=== PATIENT | male | born 2000 | race Caucasian/White ===

== ENCOUNTER 2024-03-01 22:42 | Inpatient (IN) | payer OTHER, SELFPAY ==
[2024-03-01 19:32] VITALS: BMI 19.7
[2024-03-01 19:38] VITALS: BP 142/93
[2024-03-01 20:03] LABS: % Basophils 0.4 % (0-2); % Eosinophils 9.7 % (0-6); % Immature Granulocytes 0.2 % (0-0.5); % Monocytes 5.6 % (1.7-9.3); % Neutrophils 60.1 % (42.2-75.2); Absolute Lymphocytes 2.4 10^3/uL (1.2-3.4); Absolute Monocytes 0.6 10^3/uL (0.1-0.6); Absolute Neutrophils 5.9 10^3/uL (1.4-6.5); Hematocrit 49.1 % (39.0-52.0); Hemoglobin 17.2 g/dL (13.0-18.0); Mean Corpuscular Hgb 31.3 pg (27.0-31.0); Mean Corpuscular Volume 89.3 fL (80.0-94.0); Mean Platelet Volume 9.2 fL (7.4-10.4); Nucleated Red Blood Cells % 0 % (-); Platelet Count 247 10^3/uL (130-400); Red Cell Dist. Width 11.8 % (11.5-14.5); White Blood Cell Count 9.8 10^3/uL (4.8-10.8)
[2024-03-01 20:09] LABS: Urine Albumin 1+ (Neg - Trace); Urine Bilirubin Negative (Negative); Urine Character Clear (Clear); Urine Color Yellow; Urine Glucose Negative (Negative); Urine Ketone Negative (Negative); Urine Leukocyte Negative (Negative); Urine Nitrite Negative (Negative); Urine Occult Blood 4+ (Negative); Urine Specific Gravity 1.025 (<1.030); Urine Urobilinogen Negative (Neg - 1+)
[2024-03-01 20:26] LABS: Urine Bacteria Moderate (Negative); Urine White Cell 0-2 /HPF (0-5)
--- NOTE | 2024-03-01 20:30 | ED.GENMED ---
History of Present Illness
General
Chief Complaint: Chest Pain
Source: patient
Exam Limitations: none
Time Seen by Provider: 03/01/24 20:23
Nursing documentation reviewed up to this point in time: agreed with
History of Present Illness
History of Present Illness:
23 male presents to the ER for evaluation. Patient reports he started working out at the gym again and on Tuesday did biceps and chest, Tuesday did triceps and back and Tuesday did not legs. He reports this morning he noticed that his left chest
muscle was very swollen and his arms are very sore. He can barely lift his arms. 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 He does not feel that he drinks enough water. He has been on the tractor for work this
week and not lifting. Patient did take ibuprofen 400 mg this morning and 400 later this afternoon. He went to urgent care was sent here to rule out rhabdomyolysis.
He reports he is urinating normally urine is yellow in color.
He denies any over the counter supplements , he does use protein poweder.
Review of Systems
Review of Systems
Allergies reviewed?: Yes
All Other Systems: ROS reviewed and negative except as documented in HPI and ROS
Constitutional: Reports no symptoms
Respiratory: Reports no symptoms
Cardiac: Reports no symptoms
ABD/GI: Reports no symptoms; Denies nausea or vomiting
Musculoskeletal: Reports other (Very sore to bilateral upper arms, tricep area and left chest)
Skin: Reports no symptoms
Neurological: Reports no symptoms
Psychiatric: Reports no symptoms
Phy Exam
General Physical Exam
General Presentation: no apparent distress
General age: appears stated age
General Skin: warm and dry
General Habitus: normal
General Mental: alert
General Hydration: appears well hydrated
Cardiovascular Exam
Cardiovascular Exam: regular rate/rhythm, no murmur and normal peripheral pulses
Pulmonary Exam
Pulmonary Exam: lungs clear and no respiratory distress
Neurological Exam
Neurological Exam: alert and oriented x3
Nicholls Coma Scale
Eye Opening: Spontaneous
Verbal Response: Oriented
Motor Response: Obeys Commands
GCS Total Score: 15
Musculoskeletal Exam
Musculoskeletal Exam: other (Patient with swelling to left chest pectoralis muscle very tender to palpation ; tender to b/l upper arms pain with lifting arms )
Skin Exam
Skin Exam: normal color and warm/dry
Psychiatric Exam
Psychiatric Exam: normal mood/affect
Scores
Heart Score for Chest Pain Patients
STEMI patient?: Not applicable
Course
Orders/Labs/Results
Orders:
Orders
03/01/24 19:44
Electrocardiogram (*1) Urgent
Reason for Study: Chest Pain
Cardiology Consult: Unknown
03/01/24 19:45
EKG- Treatment ONCE
03/01/24 19:50
CPK [Creatine Phosphokinase] Urgent
Complete Blood Count/With Diff Urgent
Comprehensive Metabolic Panel Urgent
03/01/24 20:00
Urinalysis Reflex To Culture Urgent
Date Specimen was Collected: 03/01/24
Time Specimen was Collected: 19:45
Urine Microscopic Reflex Cult Urgent
Urine Culture Urgent
SONNY Source: U
Specimen Description:
Date Specimen was Collected: 03/01/24
Time Specimen was Collected: 19:45
03/01/24 20:32
0.9% Sodium Chloride 1000 ml [Nss] 1,000 ml IV BOLUS
03/01/24 21:09
0.9% Sodium Chloride 1000 ml [Nss] 1,000 ml IV BOLUS
Abnormal Lab Results
03/01/24 03/01/24
19:50 20:00
MCH 31.3 H pg
(27.0-31.0)
Absolute Eos (auto) 1.0 H 10^3/uL
(0-0.7)
Eosinophils % 9.7 H %
(0-6)
BUN 23 H mg/dl
(9-20)
AST 724 H* U/L
(17-59)
ALT 175 H U/L
(0-50)
Creatine Kinase 14761 H U/L
(55-170)
Ur Occult Blood Reflex 4+ A
(Negative)
Urine RBC 7-10 A /HPF
(0-2)
Urine Bacteria (Reflex) Moderate A
(Negative)
Urine Albumin (Reflex) 1+ A
(Neg - Trace)
03/01/24 19:50
03/01/24 19:50
Vital Signs
Initial and Last Documented VS:
Initial Vital Signs
Temp Pulse Resp BP Pulse Ox
97.6 F 65 20 142/93 100
03/01/24 19:38 03/01/24 19:38 03/01/24 19:38 03/01/24 19:38 03/01/24 19:38
Last Documented Vital Signs
Temp Pulse Resp BP Pulse Ox
97.6 F 65 20 142/93 99
03/01/24 19:38 03/01/24 19:38 03/01/24 19:38 03/01/24 19:38 03/01/24 20:49
Drying Can Worker consulted with Physician
Drying Can Worker consulted with physician?: Yes
Name of Physician Consulted: Ignacia
MDM/Problems Addressed
Differential Diagnosis Includes:
Not limited to rhabdomyolysis, dehydration
MDM/Problems Addressed:
Patient is a 23-year-old male who presents to the ER and rhabdomyolysis. He started back at the gym on Tuesday doing biceps triceps and back exercises also works outside as a completions engineer but has been on the right arm over this weekend not lifting.
He presented with extreme arm soreness and swelling to left chest pec region. The CPK is elevated at 75,435 he has a normal creatinine his AST elevated 724 and ALT is 175. Patient was given normal saline is on the second liter. Will require
admission. d/c w/ admitting hospitalist.
*Radiology
Radiology exam reviewed: radiology read reviewed
*Pulse Oximetry
Patient hypoxic: no
*Critical Care Note
Total Time (30-74mins, 75-104mins- exclusive of procedures): Not Applicable
ED Attending Note
-
Portions of this chart may have been created with voice recognition software.� Occasional wrong word or��sound alike� substitutions may have occurred due to the inherent limitations of voice recognition software.
Discharge Plan
Departure
Patient Disposition: Admit
Date of Disposition: 03/01/24
Time of Disposition: 21:09
Admit to: Med/Surg
Admit to doctor: hospitalist
Presentation/result/management discussed w/ accepting MD/DO: Hospitalist
Patient with high blood pressure during this ER visit?: Yes
Condition: Fair
Covid-19: Not Applicable
Discharge Problem:
acute rhabdomyolysis
Interventions
Interventions:
*Risk Screen - Suicide Last Done: 03/01/24 19:38
*General Assessment Last Done: 03/01/24 19:38
*Neglect/Abuse Screening Last Done: 03/01/24 19:38
ED- Fall Risk Assessment Last Done: 03/01/24 19:38
*ED COVID-19 Vaccine History Last Done: 03/01/24 19:38
ED- Cardiac Assessment Last Done: 03/01/24 20:49
ED-Musculoskeletal Assessment Last Done: 03/01/24 20:49
ED- Pulmonary Assessment Last Done: 03/01/24 20:49
Discharge Date and Time
Print Language: KOREAN
[2024-03-01 20:31] LABS: ALT (SGPT) 175 U/L (0-50); AST (SGOT) 724 U/L (17-59); Albumin 4.8 g/dl (3.5-5.0); Alkaline Phosphatase 59 U/L (38-126); Blood Urea Nitrogen 23 mg/dl (9-20); Calcium 9.8 mg/dl (8.4-10.2); Carbon Dioxide 30 mmol/L (22-30); Chloride 103 mmol/L (98-107); Glucose 92 mg/dl (70-99); Potassium 4.6 mmol/L (3.5-5.1); Sodium 138 mmol/L (135-145); Total Bilirubin 0.6 mg/dl (0.2-1.3); Total Protein 6.8 g/dl (6.3-8.2); eGFR > 60.00
[2024-03-01] MEDS: NSS 1000 IV ×3 (20:42→23:38)
[2024-03-01 20:50] VITALS: BP 128/92
[2024-03-01 20:54] LABS: Creatine Phosphokinase 75435 U/L (55-170)
[2024-03-01 21:00] VITALS: BP 131/90
[2024-03-01 22:00] VITALS: BP 130/83
--- NOTE | 2024-03-01 22:18 | HPS.HSE ---
Family Physician
-
Family Physician: Bobo Leblanc
Chief Complaint
-
Muscle pain
History of Present Illness
Patient is a 23y M with no significant PMH who presents to ED complaining of muscle pain. Patient states that he started going to the gym on Tuesday of this week and lifting weights with a friend. He noted muscle discomfort the day after working
out. 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 Patient admits that he does not drink much water / fluids throughout the day. With his workouts, he has also started
drinking post-work out protein shakes.
Patient noted that his muscle pain gradually worsened throughout the week.
Today, he noted asymmetry with enlarged L pectoralis muscle and significant tightness and discomfort in the L biceps / triceps area.
He took 4 Advil today (800mg total) in an effort to improve his discomfort.
He presented to the ED for further evaluation and treatment and is noted to have significant rhabdomyolysis.
He denies any prior history of similar symptoms.
He denies any chronic health issues.
Medical History
Past Medical History
Past Medical History: Reports None
Past Surgical History: Reports Other
Additional Past Surgical History:
Myringotomies
Social History
Tobacco: Non-smoker
Alcohol: None
Drug: None
Family History
Family History: Not pertinent
Allergies / Home Medications
Allergies reflects when Allergies were last updated in [facility].
Home Medications with original date entered in [facility]
Allergy/Medication List:
Allergies
Allergy/AdvReac Type Severity Reaction Status Date / Time
No Known Allergies Allergy Verified 03/01/24 19:37
Home Medications
No Meds [No Current Medications] 03/01/24
Review of Systems
-
History Source: Patient
A 12 point ROS was completed and negative except as noted: Yes
Constitutional: Denies Fever or Chills
EENT: Denies Sore Throat
Respiratory: Denies Cough or Trouble Breathing
Cardiac: Reports Chest Pain; Denies Palpitations
Abdomen/GI: Denies Abdominal Pain, Nausea, Vomiting or Diarrhea
: Denies Dysuria or Frequency
Musculoskeletal: Reports Muscle Pain and Muscle Stiffness; Denies Joint Pain or Joint Swelling
Neurological: Denies Dizzy or Headache
Psych: Denies Depression or Anxiety
Physical Exam
Vital Signs
Vital Signs
Temp Pulse Resp BP Pulse Ox
97.6 F 61 11 131/90 100
03/01/24 19:38 03/01/24 21:30 03/01/24 21:30 03/01/24 21:00 03/01/24 21:30
Physical Exam
General: Other (23y M in no acute distress.)
HEENT: Moist mucous membranes and PERRLA
Respiratory: Clear; No Wheezes, Rales or Rhonchi
Cardiac: S1/S2 and Regular Rhythm; No Murmur
GI: Soft, Non Tender, Non Distended and Normal Bowel Sounds
Musculoskeletal: No Clubbing, No Cyanosis and Edema, Left Lower Extremity (Asymmetry with enlarged L pectoralis and biceps / triceps compared to the R. Pos tenderness in these areas without fluctuance.)
Neuro: AO x 3
Laboratory Results
-
03/01/24 19:50
03/01/24 19:50
Laboratory Results
Total Bilirubin 0.6 mg/dl (0.2-1.3) 03/01/24 19:50
AST 724 U/L (17-59) H* 03/01/24 19:50
ALT 175 U/L (0-50) H 03/01/24 19:50
Alkaline Phosphatase 59 U/L (38-126) 03/01/24 19:50
Impression/Plan
-
A/P: Patient is a 23y M with no significant PMH who presents to ED complaining of muscle pain after starting new workout regimen this week.
Rhabdomyolysis
- Admit for further evaluation and treatment.
- Muscle pain / tenderness and markedly elevated CPK c/w rhabdo.
- No evidence of renal impairment, but UA suggestive of early pigment nephropathy.
- Aggressive IVF replacement for brisk urine output.
- Pain control for muscle soreness - avoiding NSAIDs and other nephrotoxic agents.
- Follow for clinical improvement.
- Monitor for adequate urine output.
- Follow renal function and CPK levels.
DVT Prophylaxis: Lovenox
Code Status: Full
[2024-03-01 23:33] VITALS: BP 121/68; BMI 19.3
[2024-03-02] MEDS: VALIUM 5 MG PO ×2 (00:15→11:36)
--- NOTE | 2024-03-02 00:30 | PTCARENOTE ---
Pt transferred from ED. Pt ambulated into room with assistance. Pt AAOX3, able to make needs known, VSS. Pt has muscle pain in B/L arms and chest. Pt oriented to unit, call reynaga within reach. Will continue with current plan.
[2024-03-02] MEDS: NSS 1000 IV ×5 (03:34→20:46)
[2024-03-02 06:00] VITALS: BMI 19.5
[2024-03-02 07:00] VITALS: BP 129/91
[2024-03-02 07:02] LABS: Hematocrit 43.9 % (39.0-52.0); Hemoglobin 15.3 g/dL (13.0-18.0); Mean Corp Hgb Conc. 34.9 g/dL (33.0-37.0); Mean Corpuscular Hgb 31.3 pg (27.0-31.0); Mean Corpuscular Volume 89.8 fL (80.0-94.0); Mean Platelet Volume 9.3 fL (7.4-10.4); Platelet Count 209 10^3/uL (130-400); Red Blood Cell Count 4.89 10^6/uL (4.70-6.10); Red Cell Dist. Width 11.9 % (11.5-14.5)
[2024-03-02] MEDS: TYLENOL 1000 MG PO ×3 (08:01→22:18)
[2024-03-02 08:04] LABS: Blood Urea Nitrogen 13 mg/dl (9-20); Calcium 8.3 mg/dl (8.4-10.2); Carbon Dioxide 26 mmol/L (22-30); Chloride 109 mmol/L (98-107); Estimated Creatinine Clearance 114 ml/min; Glucose 86 mg/dl (70-99); Potassium 4.3 mmol/L (3.5-5.1); Sodium 138 mmol/L (135-145); eGFR > 60.00
[2024-03-02 08:49] LABS: Creatine Phosphokinase 56238 U/L (55-170)
--- NOTE | 2024-03-02 12:42 | W.PN.HOSP.TC ---
Today's Communication/Plan
-
See bold
Assessment / Plan
Assessment / Plan
Gen: NAD, AAOx3.
Eyes: EOMI, PERRLA, no scleral icterus.
Neck: supple.
CV: RRR, +S1/S2, no m/r/g.
Resp: CTAB, no rales, wheezes, or rhonchi.
Abd: +BS, soft, NT, ND
Skin: No rashes.
Neuro: CN 2-12 intact, non-focal.
Psych: Normal mood and affect.
Acute nontraumatic rhabdomyolysis due to weightlifting:
-cont IVFs
-CPK trending down
-elevated LFTs due to rhabdo
-Cr stable
Patient's parents updated at bedside.
FULL/Lovenox
Anticipated Discharge: Within 24 hours
Subjective/Interval History
-
Date of Service: March 02, 2024
No new complaints.
Objective Data
-
Labs:
Laboratory Results
03/02/24
06:43
WBC 7.0
Hgb 15.3
Hct 43.9
Plt Count 209
Sodium 138
Potassium 4.3
Chloride 109 H
Carbon Dioxide 26
BUN 13
Creatinine 0.8
Glucose 86
Calcium 8.3 L D
Vital Signs:
Vital Signs
Temp Pulse Resp BP Pulse Ox
97.6 F 57 16 129/91 100
03/02/24 07:00 03/02/24 07:00 03/02/24 07:00 03/02/24 07:00 03/02/24 07:00
I&O
03/01/24 03/02/24 03/03/24
06:59 06:59 06:59
Intake Total 480 / 480 1750 / 1750
Balance 480 / 480 1749 / 1749
[2024-03-02 15:00] VITALS: BP 127/88
--- NOTE | 2024-03-02 15:59 | CM ---
biomedical manager reviewed patient's chart and met with patient and patient lives with with his father in a multilevel home patient is independent with adl's and ambulation, no dme. Patient does not have insurance.
Plan; Home with father when stable, no needs.
[2024-03-02] MEDS: LOVENOX 40 MG SC (17:40)
[2024-03-02 23:00] VITALS: BP 131/81
[2024-03-03] MEDS: VALIUM 5 MG PO ×3 (00:03→23:53)
[2024-03-03] MEDS: NSS 1000 IV ×7 (00:06→23:49)
[2024-03-03 07:00] VITALS: BP 139/95
[2024-03-03 07:03] LABS: ALT (SGPT) 254 U/L (0-50); Albumin 3.9 g/dl (3.5-5.0); Alkaline Phosphatase 46 U/L (38-126); Blood Urea Nitrogen 5 mg/dl (9-20); Calcium 9.1 mg/dl (8.4-10.2); Carbon Dioxide 28 mmol/L (22-30); Chloride 106 mmol/L (98-107); Estimated Creatinine Clearance > 125 ml/min; Glucose 85 mg/dl (70-99); Potassium 4.2 mmol/L (3.5-5.1); Sodium 138 mmol/L (135-145); Total Bilirubin 0.9 mg/dl (0.2-1.3); Total Protein 5.6 g/dl (6.3-8.2); eGFR > 60.00
[2024-03-03 07:20] LABS: AST (SGOT) 887 U/L (17-59)
[2024-03-03 07:40] LABS: Creatine Phosphokinase 89183 U/L (55-170)
[2024-03-03] MEDS: TYLENOL 1000 MG PO ×3 (07:51→21:42)
--- NOTE | 2024-03-03 09:46 | W.PN.HOSP.TC ---
Today's Communication/Plan
-
see bold
Assessment / Plan
Assessment / Plan
Gen: Remains NAD, AAOx3.
Eyes: EOMI, PERRLA, no scleral icterus.
Neck: supple.
CV: Remains RRR, +S1/S2, no m/r/g.
Resp: Remains CTAB, no rales, wheezes, or rhonchi.
Abd: +BS, soft, NT, ND
Skin: No rashes.
Neuro: CN 2-12 intact, non-focal.
Psych: Normal mood and affect.
Acute nontraumatic rhabdomyolysis due to weightlifting:
-cont IVFs
-CPK trending up
-elevated LFTs due to rhabdo
-Cr stable
-will c/s renal for completeness
FULL/Lovenox
Anticipated Discharge: 24 - 48 hours
Subjective/Interval History
-
Date of Service: March 03, 2024
Patient reports right shoulder is sore. Otherwise no new complaints.
Objective Data
-
Labs:
Laboratory Results
03/03/24
05:51
Sodium 138
Potassium 4.2
Chloride 106
Carbon Dioxide 28
BUN 5 L
Creatinine 0.7
Glucose 85
Calcium 9.1
Total Bilirubin 0.9
AST 887 H*
ALT 254 H
Alkaline Phosphatase 46
Vital Signs:
Vital Signs
Temp Pulse Resp BP Pulse Ox
97.7 F 70 20 139/95 99
03/03/24 07:00 03/03/24 07:00 03/03/24 07:00 03/03/24 07:00 03/03/24 07:00
I&O
03/02/24 03/03/24 03/04/24
06:59 06:59 06:59
Intake Total 480 / 480 9170 / 9144
Balance 480 / 480 9170 / 9103
--- NOTE | 2024-03-03 10:10 | W.CON.NEPH ---
Consultation
-
Date/Time Consultation Requested: March 03, 2024 10 AM
Date/Time Consultation Performed: March 03, 2024 10 AM
Requesting Provider: Dr. Ramos
Performing Provider: Dr. Mcmahon
Reason for Consultation: Rhabdomyolysis
Medical History
-
Chief Complaint: Muscle ache
History of Present Illness:
This is a 23-year-old gentleman who has no significant medical history who works at [employer] In this last week on Tuesday he began a workout regimen though he has not been to the gym in some time. He worked on biceps and chest on
Tuesday, triceps and back on Tuesday and legs on Tuesday. On began not to feel very well with muscle aches and pains. He took some Advil did not help his pain. He also believes that he does not drink as much fluid as he normally
probably would have. On Tuesday he had felt even worse and came to the emergency room for evaluation. He was found to have rhabdomyolysis with elevated CPK level starting at 75,000 is now increased to 89,000. We are asked to assist with
management.
Past Medical History
Myringotomy tubes
Social History
Tobacco: Non-Smoker
Alcohol: None
Family History
Family History: Not Pertinent
Allergies / Home Medications
Allergy/AdvReac Type Severity Reaction Status Date / Time
No Known Allergies Allergy Verified 03/01/24 19:37
�Medication �Instructions �Recorded �Confirmed �Type
No Meds [No Current Medications] 03/01/24 03/01/24 History
Review of Systems
-
Muscle aches only. No chest pain no shortness of breath no issues with urination no GI symptoms no headache
All other systems: Negative unless noted
Physical Exam
Vital Signs
Vital Signs
Temp Pulse Resp BP Pulse Ox
97.7 F 70 20 139/95 99
03/03/24 07:00 03/03/24 07:00 03/03/24 07:00 03/03/24 07:00 03/03/24 07:00
Lab Results
WBC 7.0 10^3/uL (4.8-10.8) 03/02/24 06:43
RBC 4.89 10^6/uL (4.70-6.10) 03/02/24 06:43
Hgb 15.3 g/dL (13.0-18.0) 03/02/24 06:43
Hct 43.9 % (39.0-52.0) 03/02/24 06:43
Plt Count 209 10^3/uL (130-400) 03/02/24 06:43
Sodium 138 mmol/L (135-145) 03/03/24 05:51
Potassium 4.2 mmol/L (3.5-5.1) 03/03/24 05:51
Chloride 106 mmol/L (98-107) 03/03/24 05:51
Carbon Dioxide 28 mmol/L (22-30) 03/03/24 05:51
BUN 5 mg/dl (9-20) L 03/03/24 05:51
Creatinine 0.7 mg/dL (0.7-1.3) 03/03/24 05:51
eGFR > 60.00 03/03/24 05:51
Glucose 85 mg/dl (70-99) 03/03/24 05:51
Calcium 9.1 mg/dl (8.4-10.2) 03/03/24 05:51
Albumin 3.9 g/dl (3.5-5.0) 03/03/24 05:51
Physical Exam
Patient is awake alert oriented and in no distress. Mood and affect were pleasant, insight and judgment were good. Pupils are equal round and reactive to light, extraocular movements are intact, sclera were anicteric. Hearing was normal, ears and
nose are intact. Oropharynx was clear. Neck was supple with trachea midline and no thyromegaly. Heart was regular rate and rhythm without rubs. Lower extremities without edema. Lungs were clear to auscultation bilaterally and with normal
excursion. Abdomen was soft, nontender, with normal active bowel sounds, and no hepatosplenomegaly. Skin was without rash and with normal turgor.
Data Reviewed
-
Labs: Labs Reviewed by me (CPK 8918, AST 887, ALT 254, creatinine 0.7, potassium 4.2, calcium 9.1, hemoglobin 15.3)
Assessment/Plan
-
Assessment
Rhabdomyolysis
Elevated LFTs
Plan
Follow blood work, CPK
Follow creatinine
Continue aggressive volume resuscitation
So long as he maintains excellent urine output renal function will remain preserved
Should remain on IV fluids until CPK is improving to at least 30,000
[2024-03-03 15:00] VITALS: BP 133/95
[2024-03-03] MEDS: LOVENOX 40 MG SC (16:49)
[2024-03-03] MEDS: MELATONIN 5 MG PO (21:42)
[2024-03-03 23:00] VITALS: BP 140/96
[2024-03-04] MEDS: NSS 1000 IV ×5 (03:54→22:44)
[2024-03-04] MEDS: VALIUM 5 MG PO (03:57)
[2024-03-04 06:00] VITALS: BMI 19.0
[2024-03-04 07:33] VITALS: BP 134/95
[2024-03-04] MEDS: TYLENOL 1000 MG PO ×3 (08:03→21:26)
[2024-03-04 08:18] LABS: ALT (SGPT) 311 U/L (0-50); Albumin 3.9 g/dl (3.5-5.0); Alkaline Phosphatase 54 U/L (38-126); Blood Urea Nitrogen 5 mg/dl (9-20); Calcium 9.2 mg/dl (8.4-10.2); Carbon Dioxide 28 mmol/L (22-30); Chloride 106 mmol/L (98-107); Estimated Creatinine Clearance > 125 ml/min; Glucose 85 mg/dl (70-99); Sodium 138 mmol/L (135-145); Total Bilirubin 0.8 mg/dl (0.2-1.3); Total Protein 5.8 g/dl (6.3-8.2); eGFR > 60.00
[2024-03-04 08:33] LABS: AST (SGOT) 862 U/L (17-59)
[2024-03-04 08:53] LABS: Creatine Phosphokinase 79329 U/L (55-170)
--- NOTE | 2024-03-04 09:01 | W.PN.NEPH.PH ---
Today's Communication / Plan
-
Follow CPK
Assessment/Plan
-
Assessment
Rhabdomyolysis
Elevated LFTs
Plan
Follow blood work, CPK
Follow creatinine, LFTs
Continue aggressive volume resuscitation
So long as he maintains excellent urine output renal function will remain preserved
Should remain on IV fluids until CPK is improving to at least 50,000; LFTs should improve by then as well
-
-
Date of Service: March 04, 2024
CC / HPI / ROS
-
Chief Complaint:
Rhabdomyolysis
[place] [address]
Creatinine remained stable
Excellent urine output
Review of Systems:
No chest pain or shortness of breath
Labs
-
Labs:
WBC 7.0 10^3/uL (4.8-10.8) 03/02/24 06:43
RBC 4.89 10^6/uL (4.70-6.10) 03/02/24 06:43
Hgb 15.3 g/dL (13.0-18.0) 03/02/24 06:43
Hct 43.9 % (39.0-52.0) 03/02/24 06:43
Plt Count 209 10^3/uL (130-400) 03/02/24 06:43
Sodium 138 mmol/L (135-145) 03/04/24 06:50
Potassium 4.0 mmol/L (3.5-5.1) 03/04/24 06:50
Chloride 106 mmol/L (98-107) 03/04/24 06:50
Carbon Dioxide 28 mmol/L (22-30) 03/04/24 06:50
BUN 5 mg/dl (9-20) L 03/04/24 06:50
Creatinine 0.7 mg/dL (0.7-1.3) 03/04/24 06:50
eGFR > 60.00 03/04/24 06:50
Glucose 85 mg/dl (70-99) 03/04/24 06:50
Calcium 9.2 mg/dl (8.4-10.2) 03/04/24 06:50
Albumin 3.9 g/dl (3.5-5.0) 03/04/24 06:50
Physical Exam
-
Vital Signs:
Vital Signs
Temp Pulse Resp BP Pulse Ox
97.7 F 58 14 134/95 97
03/04/24 07:33 03/04/24 07:33 03/04/24 07:33 03/04/24 07:33 03/04/24 07:33
Cardiovascular:: Regular rate and rhythm
Respiratory:: Bilateral: CTA
Lung Excursion:: Normal
Abdomen:: Nontender and Soft
Bowel Sounds:: Normal
Extremity Edema:: None: Bilateral:
--- NOTE | 2024-03-04 11:11 | W.PN.HOSP.TC ---
Today's Communication/Plan
-
see bold
Assessment / Plan
Assessment / Plan
Gen: Continues to remain NAD, AAOx3.
Eyes: EOMI, PERRLA, no scleral icterus.
Neck: supple.
CV: Continues to remain RRR, +S1/S2, no m/r/g.
Resp: Continues to remain CTAB, no rales, wheezes, or rhonchi.
Abd: +BS, soft, NT, ND
Skin: No rashes.
Neuro: CN 2-12 intact, non-focal.
Psych: Normal mood and affect.
Acute nontraumatic rhabdomyolysis due to weightlifting:
-cont IVFs
-trend CPK (needs to be below 50,000 prior to discharge as per renal)
-elevated LFTs due to rhabdo
-Cr stable
Patient's mother updated at bedside.
FULL/Lovenox
Anticipated Discharge: 24 - 48 hours
Subjective/Interval History
-
Date of Service: March 04, 2024
No new complaints.
Objective Data
-
Labs:
Laboratory Results
03/04/24
06:50
Sodium 138
Potassium 4.0
Chloride 106
Carbon Dioxide 28
BUN 5 L
Creatinine 0.7
Glucose 85
Calcium 9.2
Total Bilirubin 0.8
AST 862 H*
ALT 311 H
Alkaline Phosphatase 54
Vital Signs:
Vital Signs
Temp Pulse Resp BP Pulse Ox
97.7 F 58 14 134/95 97
03/04/24 07:33 03/04/24 07:33 03/04/24 07:33 03/04/24 07:33 03/04/24 07:33
I&O
03/03/24 03/04/24 03/05/24
06:59 06:59 06:59
Intake Total 9170 / 9170 5340 / 5340
Balance 9170 / 9170 5340 / 5340
[2024-03-04 15:36] VITALS: BP 138/90
[2024-03-04] MEDS: LOVENOX SC (17:55)
[2024-03-04] MEDS: LOVENOX 40 MG SC (17:59)
[2024-03-04] MEDS: MELATONIN 5 MG PO (22:43)
[2024-03-04 23:00] VITALS: BP 135/89
[2024-03-05] MEDS: NSS 1000 IV ×5 (04:51→19:32)
[2024-03-05 06:00] VITALS: BMI 18.7
[2024-03-05 07:28] VITALS: BP 136/87
[2024-03-05 08:03] LABS: ALT (SGPT) 338 U/L (0-50); AST (SGOT) 741 U/L (17-59); Albumin 4.2 g/dl (3.5-5.0); Alkaline Phosphatase 51 U/L (38-126); Blood Urea Nitrogen 6 mg/dl (9-20); Calcium 9.5 mg/dl (8.4-10.2); Carbon Dioxide 26 mmol/L (22-30); Chloride 105 mmol/L (98-107); Direct Bilirubin 0.2 mg/dl (0.0-0.4); Estimated Creatinine Clearance > 125 ml/min; Glucose 89 mg/dl (70-99); Potassium 4.5 mmol/L (3.5-5.1); Sodium 137 mmol/L (135-145); Total Bilirubin 0.7 mg/dl (0.2-1.3); Total Protein 6.1 g/dl (6.3-8.2); eGFR > 60.00
[2024-03-05 08:29] LABS: Creatine Phosphokinase 57572 U/L (55-170)
--- NOTE | 2024-03-05 08:53 | PN.CDI ---
CDI
- -
CDI:
Physician Documentation Request
Admit Date: 03/01/24 22:42
Dear Doctor Rachel,
Patient admitted for rhabdomyolysis.
Please review the following and provide your response in the progress notes.
Clinical Indicators:
Height: 5' 7'
Weight: 119 lbs
BMI: 18.7
If possible, please provide an associated diagnosis related to the abnormal BMI, such as:
Underweight
Cachectic
BMI is not significant
Other
BMI < or = to 19.9
Underweight
Weight Loss
Cachectic
Anorexia
Use of terms such as suspected, likely, concern for, or probable (associated with a specific diagnosis that is being evaluated, monitored, or treated as if it exists) are acceptable and can be coded in the inpatient setting, when documented at the
time of discharge.
Thank you,
Vivienne Dexter RN, BSN
CDI Specialist
Available via [employer] text
Please use your independent medical judgment in providing your response.
[2024-03-05] MEDS: TYLENOL 1000 MG PO ×3 (09:02→22:23)
--- NOTE | 2024-03-05 09:53 | W.PN.HOSP.TC ---
Today's Communication/Plan
-
see bold
Assessment / Plan
Assessment / Plan
Gen: NAD, AAOx3.
Eyes: EOMI, PERRLA, no scleral icterus.
Neck: supple.
CV: RRR, +S1/S2, no m/r/g.
Resp: CTAB, no rales, wheezes, or rhonchi.
Abd: remains +BS, soft, NT, ND
Skin: No rashes.
Neuro: remains CN 2-12 intact, non-focal.
Psych: Normal mood and affect.
Acute nontraumatic rhabdomyolysis due to weightlifting:
-cont IVFs
-trend CPK (needs to be below 50,000 prior to discharge as per renal)
-elevated LFTs due to rhabdo
-Cr stable
Underweight
FULL/Lovenox
Anticipated Discharge: Within 24 hours
Subjective/Interval History
-
Date of Service: March 05, 2024
No new complaints.
Objective Data
-
Labs:
Laboratory Results
03/05/24
06:24
Sodium 137
Potassium 4.5
Chloride 105
Carbon Dioxide 26
BUN 6 L
Creatinine 0.7
Glucose 89
Calcium 9.5
Total Bilirubin 0.7
AST 741 H*
ALT 338 H
Alkaline Phosphatase 51
Vital Signs:
Vital Signs
Temp Pulse Resp BP Pulse Ox
98.1 F 62 20 136/87 99
03/05/24 07:28 03/05/24 07:28 03/05/24 07:28 03/05/24 07:28 03/05/24 07:28
I&O
03/04/24 03/05/24 03/06/24
06:59 06:59 06:59
Intake Total 5340 / 5340 6240 / 6240
Balance 5340 / 5340 6240 / 6240
--- NOTE | 2024-03-05 12:56 | W.PN.NEPH.PH ---
Today's Communication / Plan
-
- continue fluids
Assessment/Plan
-
Assessment
Rhabdomyolysis
Elevated LFTs
Plan
Follow blood work, CPK
Follow creatinine, LFTs
Continue aggressive volume resuscitation
So long as he maintains excellent urine output renal function will remain preserved
Should remain on IV fluids until CPK is improving to at least 50,000; LFTs should improve by then as well
-
-
Date of Service: March 05, 2024
CC / HPI / ROS
-
Chief Complaint:
Rhabdomyolysis
History [place] Ill[place] [address]
Creatinine remained stable
Excellent urine output
Review of Systems:
No chest pain or shortness of breath
Labs
-
Labs:
WBC 7.0 10^3/uL (4.8-10.8) 03/02/24 06:43
RBC 4.89 10^6/uL (4.70-6.10) 03/02/24 06:43
Hgb 15.3 g/dL (13.0-18.0) 03/02/24 06:43
Hct 43.9 % (39.0-52.0) 03/02/24 06:43
Plt Count 209 10^3/uL (130-400) 03/02/24 06:43
Sodium 137 mmol/L (135-145) 03/05/24 06:24
Potassium 4.5 mmol/L (3.5-5.1) 03/05/24 06:24
Chloride 105 mmol/L (98-107) 03/05/24 06:24
Carbon Dioxide 26 mmol/L (22-30) 03/05/24 06:24
BUN 6 mg/dl (9-20) L 03/05/24 06:24
Creatinine 0.7 mg/dL (0.7-1.3) 03/05/24 06:24
eGFR > 60.00 03/05/24 06:24
Glucose 89 mg/dl (70-99) 03/05/24 06:24
Calcium 9.5 mg/dl (8.4-10.2) 03/05/24 06:24
Albumin 4.2 g/dl (3.5-5.0) 03/05/24 06:24
Physical Exam
-
Vital Signs:
Vital Signs
Temp Pulse Resp BP Pulse Ox
98.1 F 62 20 136/87 99
03/05/24 07:28 03/05/24 07:28 03/05/24 07:28 03/05/24 07:28 03/05/24 07:28
Cardiovascular:: Regular rate and rhythm
Respiratory:: Bilateral: CTA
Lung Excursion:: Normal
Abdomen:: Nontender and Soft
Bowel Sounds:: Normal
Extremity Edema:: None: Bilateral:
Lara Catheter: No
--- NOTE | 2024-03-05 14:34 | CM ---
Chart reviewed and plan is to home when stable.
Plan; Home when stable.
[2024-03-05 15:43] VITALS: BP 131/87
[2024-03-05] MEDS: LOVENOX 40 MG SC (17:54)
[2024-03-05 23:33] VITALS: BP 126/78
[2024-03-05] MEDS: MELATONIN 5 MG PO (23:40)
[2024-03-06] MEDS: NSS 1000 IV ×2 (01:18→06:17)
[2024-03-06 06:11] VITALS: BMI 18.5
[2024-03-06 07:33] VITALS: BP 144/94
[2024-03-06] MEDS: TYLENOL 1000 MG PO (09:29)
[2024-03-06 10:07] LABS: ALT (SGPT) 367 U/L (0-50); AST (SGOT) 450 U/L (17-59); Albumin 4.7 g/dl (3.5-5.0); Alkaline Phosphatase 56 U/L (38-126); Blood Urea Nitrogen 7 mg/dl (9-20); Calcium 9.8 mg/dl (8.4-10.2); Carbon Dioxide 28 mmol/L (22-30); Chloride 104 mmol/L (98-107); Estimated Creatinine Clearance > 125 ml/min; Glucose 89 mg/dl (70-99); Potassium 4.6 mmol/L (3.5-5.1); Sodium 139 mmol/L (135-145); Total Bilirubin 0.7 mg/dl (0.2-1.3); Total Protein 6.7 g/dl (6.3-8.2); eGFR > 60.00
[2024-03-06 10:34] LABS: Creatine Phosphokinase 22131 U/L (55-170)
--- NOTE | 2024-03-06 11:22 | W.PN.HOSP.TC ---
Addendum entered and electronically signed by Mireille Acosta MD 03/06/24 12:57:
total DC time 36 min
Original Note:
Today's Communication/Plan
-
see A/P
Assessment / Plan
Assessment / Plan
Gen: NAD, AAOx3.
Eyes: EOMI, PERRLA, no scleral icterus.
Neck: supple.
CV: RRR, +S1/S2, no m/r/g.
Resp: CTAB, no rales, wheezes, or rhonchi.
Abd: remains +BS, soft, NT, ND
Skin: No rashes.
Neuro: remains CN 2-12 intact, non-focal.
Psych: Normal mood and affect.
A/P:
# Acute nontraumatic rhabdomyolysis due to weightlifting
# elevated LFTs due to rhabdo, improving
-CPK trending down, (needs to be below 50,000 prior to discharge as per renal), today CPK at 22 000
-cont IVFs
-Would hold Tylenol for now
-although less likely, but could check hepatitis serologies to r/o , follow up results to your PCP outpt
-Cr stable
# Underweight
BMP 18
FULL/Lovenox
Anticipated Discharge: Today
Subjective/Interval History
-
Date of Service: March 06, 2024
Objective Data
-
Labs:
Laboratory Results
03/06/24
09:34
Sodium 139
Potassium 4.6
Chloride 104
Carbon Dioxide 28
BUN 7 L
Creatinine 0.7
Glucose 89
Calcium 9.8
Total Bilirubin 0.7
AST 450 H
ALT 367 H
Alkaline Phosphatase 56
Vital Signs:
Vital Signs
Temp Pulse Resp BP Pulse Ox
36.7 C 80 20 144/94 99
03/06/24 07:33 03/06/24 07:33 03/06/24 07:33 03/06/24 07:33 03/06/24 07:33
I&O
03/05/24 03/06/24 03/07/24
06:59 06:59 06:59
Intake Total 6240 / 6240 3960 / 3960
Balance 6240 / 6240 3960 / 3960
Review of Systems
-
All other systems: Reviewed and negative
Data Reviewed
-
Labs: Labs Reviewed by me
--- NOTE | 2024-03-06 11:40 | CM ---
Chart reviewed and plan is for patient to return to home with his father today.
Plan; Home with father.
--- NOTE | 2024-03-06 12:01 | W.PN.NEPH.PH ---
Today's Communication / Plan
-
- d/c fluids
Assessment/Plan
-
Assessment
Rhabdomyolysis
Elevated LFTs
Plan
Follow blood work, CPK
Follow creatinine, LFTs
Can hold fluids now that CPK is downtrending to <50K, LFTs also improving
So long as he maintains excellent urine output renal function will remain preserved
-
-
Date of Service: March 06, 2024
CC / HPI / ROS
-
Chief Complaint:
Rhabdomyolysis
History of Present Illness:
CPK down to 22K
Creatinine remained stable
Excellent urine output
Review of Systems:
No chest pain or shortness of breath
Labs
-
Labs:
WBC 7.0 10^3/uL (4.8-10.8) 03/02/24 06:43
RBC 4.89 10^6/uL (4.70-6.10) 03/02/24 06:43
Hgb 15.3 g/dL (13.0-18.0) 03/02/24 06:43
Hct 43.9 % (39.0-52.0) 03/02/24 06:43
Plt Count 209 10^3/uL (130-400) 03/02/24 06:43
Sodium 139 mmol/L (135-145) 03/06/24 09:34
Potassium 4.6 mmol/L (3.5-5.1) 03/06/24 09:34
Chloride 104 mmol/L (98-107) 03/06/24 09:34
Carbon Dioxide 28 mmol/L (22-30) 03/06/24 09:34
BUN 7 mg/dl (9-20) L 03/06/24 09:34
Creatinine 0.7 mg/dL (0.7-1.3) 03/06/24 09:34
eGFR > 60.00 03/06/24 09:34
Glucose 89 mg/dl (70-99) 03/06/24 09:34
Calcium 9.8 mg/dl (8.4-10.2) 03/06/24 09:34
Albumin 4.7 g/dl (3.5-5.0) 03/06/24 09:34
Physical Exam
-
Vital Signs:
Vital Signs
Temp Pulse Resp BP Pulse Ox
98.1 F 80 20 144/94 99
03/06/24 07:33 03/06/24 07:33 03/06/24 07:33 03/06/24 07:33 03/06/24 07:33
Cardiovascular:: Regular rate and rhythm
Respiratory:: Bilateral: CTA
Lung Excursion:: Normal
Abdomen:: Nontender and Soft
Bowel Sounds:: Normal
Extremity Edema:: None: Bilateral:
Lara Catheter: No
--- NOTE | 2024-03-06 12:35 | W.DCSUMMARY ---
Discharge Summary
Discharge Data
Date of Admission: 03/01/24
Date of Discharge: 03/06/24
-
Pending Results: No
Hospital Course
Principal Diagnosis:
Acute nontraumatic rhabdomyolysis due to heavy exercise/weightlifting
Elevated LFTs due to rhabdomyolysis, LFT improving
Chronic Diagnoses:�
Underweight, BMI 18
Consultations:�
Nephrology
Procedures:�
None
Clinical course:�
This is a 23 year old male who presented with diffuse muscle pain. He admitted to going to the gym and was doing heavy lifting.
Problem 1:
Acute nontraumatic rhabdomyolysis due to heavy exercise/weightlifting.
This was associated with elevated LFTs from rhabdomyolysis.
His LFT improved during his hospital stay. He can continue to check his LFT outpatient with result to his PCP.
He received IVF and his CPK trended down to 22 000 on the day of discharge.
He can follow up his hepatitis panel (obtained just prior to discharge) with his PCP outpatient.
He has been informed to avoid Tylenol while awaiting for his LFT to normalize.
As for the rest of his medical problems, they were stable during his hospital stay.
Discharge Plan
-
Patient Disposition: Home (Routine Discharge)
Discharge Diagnosis/Procedures: Acute nontraumatic rhabdomyolysis due to weightlifting; elevated LFTs due to rhabdo (improving)
Condition: Good
Diet: As tolerated
Activity: As tolerated
Driving Restrictions: As prior to admission
Blood Work: CMP in 1 week, result to PCP
Activity Restrictions/Additional Instructions:
Follow up hepatitis serologies with your PCP
Avoid strenuous exercise
Avoid Tylenol until outpatient LFT result and cleared by your PCP
Referrals:
Bobo Leblanc MD [Family Provider] - in less than 1 week
Prescriptions:
No Action
No Current Medications
0
Discharge Orders:
Discharge Patient (As Directed); Ordered 03/06/24
Ordered By: Mireille Acosta
Discharge Date and Time
Print Language: JAPANESE
[2024-03-06 14:02] VITALS: BP 129/87
[2024-03-06 14:10] LABS: Hepatitis B Surface Antigen Negative (Negative)
[2024-03-06 14:29] LABS: Hepatitis B Core Ab, Total Negative (Negative); Hepatitis B Surface Antibody Negative; Hepatitis C Antibody Negative (Negative)
[2024-03-06 15:32] LABS: Hepatitis A IgM Antibody Negative (Negative)
== END 2024-03-06 14:21 | disposition home or self-care (01) | DRG 558 ==
LOC: 4 WEST ACU 22:42
PROVIDERS: Emergency Medicine; Internal Medicine; ADMITTING PHYSICIAN Hospitalist; ATTENDING PHYSICIAN Internal Medicine; CONSULT PHYSICIAN Specialist; EMERGENCY PHYSICIAN Emergency Medicine; FAMILY PHYSICIAN Family Medicine
DX: M62.82 Rhabdomyolysis (principal); Z68.1 Body mass index [BMI] 19.9 or less, adult; R63.6 Underweight; X50.0XXA Overexertion from strenuous movement or load, initial encounter
CPT/HCPCS: 80048; 80053; 81003; 81015; 82248; 82550; 85025; 85027; 86704; 86706; 86709; 86803; 87086; 87340; 96360; 99285